=== PATIENT | male | born 1950 | race Caucasian/White ===

== ENCOUNTER 2021-07-19 11:39 | Inpatient (IN) | payer MEDICARE ==
[~2021-07-19] VITALS: Ht 170.2 cm; Wt 117.9 kg
[2021-07-19 12:12] LABS: HEMOGLOBIN 14.9 gm/dl (14.0-17.5); RED BLOOD COUNT 4.98 M/UL (4.20-5.50); WHITE BLOOD COUNT 7.2 K/UL (4.5-11.0)
[2021-07-19] MEDS ORDERED: VITAMIN D21250 MCG PO (17:00)
[2021-07-19] MEDS ORDERED: LEVOTHYROXINE125 MCG PO (17:00)
[2021-07-19] MEDS ORDERED: METOPROLOL TART50 MG PO (17:01)
[2021-07-19] MEDS ORDERED: ATORVASTATIN CA40 MG PO (17:03)
[2021-07-19] MEDS ORDERED: FARXIGA10 MG PO (17:04)
[2021-07-19] MEDS ORDERED: ZETIA10 MG PO (17:05)
[2021-07-19] MEDS ORDERED: ALLOPURINOL100 MG PO (17:06)
[2021-07-19] MEDS ORDERED: CLOPIDOGREL75 MG PO (17:06)
[2021-07-19] MEDS ORDERED: LOSARTAN POTAS100 MG PO (17:07)
[2021-07-19] MEDS ORDERED: METFORMIN HCL500 M2 PO (17:07)
[2021-07-19] MEDS ORDERED: HUMULIN R500 UNIT/1 SC (17:12)
[2021-07-19] MEDS ORDERED: FUROSEMIDE40 MG PO (17:15)
[2021-07-20 08:36] LABS: HEMOGLOBIN 14.1 gm/dl (14.0-17.5); RED BLOOD COUNT 4.72 M/UL (4.20-5.50); WHITE BLOOD COUNT 8.1 K/UL (4.5-11.0)
[2021-07-21 01:53] LABS: HEMOGLOBIN 13.6 gm/dl (14.0-17.5); RED BLOOD COUNT 4.57 M/UL (4.20-5.50); WHITE BLOOD COUNT 8.8 K/UL (4.5-11.0)
[2021-07-21] MEDS ORDERED: ASPIRIN EC81 MG PO (09:09)
--- NOTE | 2021-07-21 09:56 | NUR ---
REPORT CALLED TO NURSE ASHTYN
--- NOTE | 2021-07-21 10:07 | NUR ---
[facility] NOTIFIED OF NEED FOR ALS TRANSPORT FOR PT TO GO TO [facility]
== END 2021-07-21 12:40 | disposition short-term general hospital (02) | DRG 281 ==
LOC: ER1 11:39 → CDU 13:04 → PROG CARE 13:04
PROVIDERS: Internal Medicine; Nurse Practitioner; Physician Assistant; ADMIT Internal Medicine
PROC: B24BZZZ Ultrasonography of Heart with Aorta (ICD-10-PCS; principal; 2021-07-20)
PROC: 4A023N7 Measurement of Cardiac Sampling and Pressure, Left Heart, Percutaneous Approach (ICD-10-PCS; 2021-07-20)
PROC: B2111ZZ Fluoroscopy of Multiple Coronary Arteries using Low Osmolar Contrast (ICD-10-PCS; 2021-07-20)
DX: I21.4 Non-ST elevation (NSTEMI) myocardial infarction (principal); N17.9 Acute kidney failure, unspecified; Z68.41 Body mass index [BMI] 40.0-44.9, adult; Z20.822 Contact with and (suspected) exposure to COVID-19; I25.10 Atherosclerotic heart disease of native coronary artery without angina pectoris; E11.22 Type 2 diabetes mellitus with diabetic chronic kidney disease; E66.01 Morbid (severe) obesity due to excess calories; N18.30 Chronic kidney disease, stage 3 unspecified; G89.29 Other chronic pain; M54.9 Dorsalgia, unspecified; E03.9 Hypothyroidism, unspecified; E11.51 Type 2 diabetes mellitus with diabetic peripheral angiopathy without gangrene; I08.3 Combined rheumatic disorders of mitral, aortic and tricuspid valves; E78.5 Hyperlipidemia, unspecified; Z98.62 Peripheral vascular angioplasty status; Z79.4 Long term (current) use of insulin; Z86.73 Personal history of transient ischemic attack (TIA), and cerebral infarction without residual deficits; Z79.01 Long term (current) use of anticoagulants; Z79.82 Long term (current) use of aspirin; Z90.49 Acquired absence of other specified parts of digestive tract; Z88.8 Allergy status to other drugs, medicaments and biological substances; Z82.49 Family history of ischemic heart disease and other diseases of the circulatory system
CPT/HCPCS: ECHO; 36415; 71045; 78452; 80048; 80053; 81001; 82550; 82553; 82962; 84484; 85025; 85610; 85730; 93005; 93017; 93306; 96374; 96375; 99285; A9502; C1769; C1887; C1894; J1644; J2250; J2270; J2370; J2405; J2785; J3010; J7040; Q9965